=== PATIENT | female | born 1950 | race Caucasian/White ===

== ENCOUNTER → 2016-06-27 | Outpatient (CLI) | payer MEDICARE ==
[2016-06-27 11:01] LABS: ALT 46 U/L (9-52); AST 26 U/L (14-36); Alkaline Phosphatase 92 U/L (38-126); Anion Gap 9 mmol/L; Blood Urea Nitrogen 19 mg/dL (7-17); Calcium 8.7 mg/dL (8.4-10.2); Carbon Dioxide 26 mmol/L (22-30); Chloride 106 mmol/L (98-107); Cholesterol 243 mg/dL (<200); Glucose 134 mg/dL (74-99); HDL Cholesterol 67 mg/dL (40-60); Non-African American GFR(MDRD) >60 (>60 ml/min/1.73 sqM); Potassium 4.6 mmol/L (3.5-5.1); Sodium 141 mmol/L (137-145); Total Bilirubin 0.4 mg/dL (0.2-1.3); Total Protein 6.6 g/dL (6.3-8.2); Triglycerides 154 mg/dL (<150)
== END | disposition home or self-care (01) ==
LOC: LABWHC1 09:49
PROVIDERS: ATTEND Nurse Practitioner
DX: K21.9 Gastro-esophageal reflux disease without esophagitis (principal); E11.65 Type 2 diabetes mellitus with hyperglycemia; R11.0 Nausea
CPT/HCPCS: 36415; 80053; 80061; 82043; 84443; 86677

== ENCOUNTER → 2017-02-21 | Day surgery (SDC) | payer MEDICARE ==
[2017-02-20 08:51] VITALS: BMI 26.2
[~2017-02-21] MED LIST: LACTATED RINGERS 1,000 ML IV SCH; LIDOCAINE 1% 20 ML VIAL (10MG/ML) FOR IV START INTRADERMA ONE; ONDANSETRON 4 MG/2 ML VIAL IVP ONE; PROPOFOL 10 MG/ML 20 ML VIAL IV ONE
[2017-02-21 09:08] VITALS: TEMP 96.6
[2017-02-21 09:12] LABS: Glucose,Whole Blood 142 mg/dL (75-99)
--- NOTE | 2017-02-21 09:58 | P.PCN ---
Date of Procedure: 02/21/17 Procedure(s) Performed: BRIEF HISTORY: Patient is a 66-year-old, pleasant, white female, scheduled for an upper endoscopy as a part of evaluation of chronic persistent nausea for the last 1 year duration. She was treated with Prilosec 20 mg daily for one month with no help. Recently was given a prescription for Zofran with no help. PROCEDURE PERFORMED: Esophagogastroduodenoscopy with biopsy. PREOPERATIVE DIAGNOSIS: Chronic persistent nausea. IV sedation per anesthesia. PROCEDURE: After informed consent was obtained, the patient was brought into the endoscopy unit. IV sedation was administered by Anesthesia under continuous monitoring. Initially the Olympus GIF-140 video endoscope was inserted into the mouth. Esophagus intubated without any difficulty. It was gradually advanced into the stomach and duodenum and carefully examined. The bulb and the second part of the duodenum appeared normal. Biopsies were done from the second part of the duodenum to rule out celiac disease. The scope at this time was withdrawn to the stomach, adequately insufflated with air, and upon careful examination, mucosa of the antrum, had patchy areas of erythema and biopsies were done from this area. The body, cardia and the fundus appeared normal. The scope was then withdrawn into the esophagus. The GE junction was located at 39 cm from the incisors. There was one superficial mucosal elevation at the GE junction consistent with LA grade A reflux esophagitis. A small hiatal hernia noted. Rest of the esophagus appeared normal and the patient tolerated the procedure well. IMPRESSION: 1. Mild antral gastritis. 2. Small hiatal hernia and LA grade A reflux esophagitis. RECOMMENDATIONS: The findings of this examination were discussed with the patient as well as a family. She was advised to follow up the biopsy results. in the meantime I will give her a trial of Zantac 150 milligrams twice daily for one month and she'll be seen in the office in 4-6 weeks.
[2017-02-21 10:33] VITALS: BP 157/77; PULSE 67; RESP 16
[2017-02-21 10:56] LABS: Glucose,Whole Blood 120 mg/dL (75-99)
== END ==
LOC: ORWHC2ENDO 08:23
PROVIDERS: ATTEND Internal Medicine Gastroenterology
DX: K29.50 Unspecified chronic gastritis without bleeding (principal); K21.0 Gastro-esophageal reflux disease with esophagitis; K20.0 Eosinophilic esophagitis; K44.9 Diaphragmatic hernia without obstruction or gangrene; E78.5 Hyperlipidemia, unspecified; J45.909 Unspecified asthma, uncomplicated; F17.200 Nicotine dependence, unspecified, uncomplicated; E11.9 Type 2 diabetes mellitus without complications; Z79.84 Long term (current) use of oral hypoglycemic drugs; E07.9 Disorder of thyroid, unspecified; F41.9 Anxiety disorder, unspecified; Z79.899 Other long term (current) drug therapy; Z88.6 Allergy status to analgesic agent; Z88.5 Allergy status to narcotic agent
CPT/HCPCS: 88305; 88342; 43239; J2405; J2704

== ENCOUNTER → 2017-09-16 | Outpatient (CLI) | payer MEDICARE, OTHER ==
[2017-09-16 10:36] LABS: HCT 43.1 % (34.0-46.0); HGB 14.3 gm/dL (11.4-16.0); MCH 28.7 pg (25.0-35.0); MCHC 33.1 g/dL (31.0-37.0); MCV 86.5 fL (80.0-100.0); Mean Platelet Volume 7.2; Platelet Count 176 k/uL (150-450); RBC 4.98 m/uL (3.80-5.40); RDW 13.1 % (11.5-15.5); WBC 6.1 k/uL (3.8-10.6)
[2017-09-16 11:14] LABS: Albumin 4.1 g/dL (3.5-5.0); Calcium 9.5 mg/dL (8.4-10.2); Potassium 4.5 mmol/L (3.5-5.1); Total Bilirubin 0.5 mg/dL (0.2-1.3); Total Protein 6.9 g/dL (6.3-8.2)
== END | disposition home or self-care (01) ==
LOC: LABWHC1 09:53
PROVIDERS: ATTEND Internal Medicine
DX: E11.65 Type 2 diabetes mellitus with hyperglycemia (principal)
CPT/HCPCS: 36415; 80053; 80061; 82043; 82570; 84443; 85027

== ENCOUNTER 2018-02-09 10:18 | Inpatient (IN) | payer MEDICARE ==
[2018-02-09] MEDS ORDERED: SODIUM CHLORIDE 0.9% 1,000 ML IV STA (10:58)
[2018-02-09] MEDS ORDERED: ONDANSETRON 4 MG/2 ML VIAL IVP STA (10:58)
[2018-02-09] MEDS ORDERED: MORPHINE SULFATE 2 MG/ML SYRINGE IVP STA (10:58)
[2018-02-09 11:21] LABS: Basophils % (A) 0 %; Eosinophils # (A) 0.1 k/uL (0-0.7); Eosinophils % (A) 1 %; HCT 42.1 % (34.0-46.0); HGB 14.2 gm/dL (11.4-16.0); Lymphocytes # (A) 1.8 k/uL (1.0-4.8); Lymphocytes % (A) 12 %; MCH 29.4 pg (25.0-35.0); MCHC 33.9 g/dL (31.0-37.0); MCV 86.7 fL (80.0-100.0); Mean Platelet Volume 7.3; Monocytes # (A) 0.5 k/uL (0-1.0); Monocytes % (A) 3 %; Neutrophils # (A) 12.6 k/uL (1.3-7.7); Neutrophils % (A) 83 %; Platelet Count 196 k/uL (150-450); RBC 4.85 m/uL (3.80-5.40); RDW 12.9 % (11.5-15.5); WBC 15.1 k/uL (3.8-10.6)
[2018-02-09 11:23] LABS: ALT 34 U/L (9-52); AST 18 U/L (14-36); Albumin 3.5 g/dL (3.5-5.0); Alkaline Phosphatase 105 U/L (38-126); Amylase 41 U/L (30-110); Anion Gap 8 mmol/L; Blood Urea Nitrogen 12 mg/dL (7-17); Calcium 8.7 mg/dL (8.4-10.2); Carbon Dioxide 24 mmol/L (22-30); Chloride 101 mmol/L (98-107); Glucose 311 mg/dL (74-99); Lipase 45 U/L (23-300); Potassium 4.7 mmol/L (3.5-5.1); Sodium 133 mmol/L (137-145); Total Bilirubin 1.1 mg/dL (0.2-1.3); Total Protein 6.4 g/dL (6.3-8.2)
--- NOTE | 2018-02-09 11:59 | ED ---
Abdominal Pain HPI - General Chief Complaint: Abdominal Pain Stated Complaint: poss appendicitis Time Seen by Provider: 02/09/18 10:44 Source: patient, RN notes reviewed Mode of arrival: wheelchair Limitations: no limitations - History of Present Illness Initial Comments: 67-year-old female presents emergency Department chief complaint of abdominal pain. Patient states this started this morning. Patient states that it is worse with movement states that nothing makes the pain feel better. Patient states all and right lower quadrant. Patient is concerned about acute appendicitis. She has no dysuria no hematuria no diarrhea no constipation denies any nausea vomiting. Patient states he has not taken anything for the pain is this time. She's had no prior abdominal surgeries. Denies any flank pain no history kidney stones. Patient denies chest pain or shortness breath. - Related Data Home Medications Medication Instructions Recorded Confirmed Albuterol Inhaler [Ventolin Hfa 1 - 2 puff INHALATION RT-Q6H PRN 02/20/17 Inhaler] Atorvastatin [Lipitor] 40 mg PO HS 02/20/17 02/09/18 Loratadine 10 mg PO DAILY 02/20/17 02/09/18 Multivit-Min/Iron/Folic/Lutein 1 tab PO DAILY 02/20/17 02/09/18 [Centrum Silver Women Tablet] Amoxic-Pot Clav 500-125 mg 1 tab PO Q12HR 02/09/18 02/09/18 [Augmentin 500-125 mg] Biotin 5 mg PO DAILY 02/09/18 02/09/18 Levothyroxine Sodium [Synthroid] 100 mcg PO DAILY 02/09/18 02/09/18 Magnesium 200 mg PO DAILY 02/09/18 02/09/18 glipiZIDE XL [Glucotrol Xl] 10 mg PO DAILY 02/09/18 02/09/18 Allergies Allergy/AdvReac Type Severity Reaction Status Date / Time aspirin AdvReac Nausea & Verified 02/09/18 11:01 Vomiting codeine AdvReac Nausea & Verified 02/09/18 11:01 Vomiting Review of Systems ROS Statement: Those systems with pertinent positive or pertinent negative responses have been documented in the HPI. ROS Other: All systems not noted in ROS Statement are negative. Past Medical History Past Medical History: Asthma, Diabetes Mellitus Additional Past Medical History / Comment(s): "morning sickness symptoms -no vomiting-for almost a year and loose stools", irregular HR, type II DM History of Any Multi-Drug Resistant Organisms: None Reported Past Surgical History: Section Additional Past Surgical History / Comment(s): LASIK ricardo eyes Past Anesthesia/Blood Transfusion Reactions: No Reported Reaction Additional Past Anesthesia/Blood Transfusion Reaction / Comment(s): no hx blood transfusions Past Psychological History: No Psychological Hx Reported Smoking Status: Former smoker Past Alcohol Use History: None Reported Past Drug Use History: None Reported - Past Family History Mother Family Medical History: Cancer Additional Family Medical History / Comment(s): non hodgekin's lymphoma Father Family Medical History: No Reported History Additional Family Medical History / Comment(s): tumor pituitary gland General Exam Limitations: no limitations General appearance: alert, in no apparent distress Head exam: Present: atraumatic, normocephalic, normal inspection Neck exam: Present: normal inspection, full ROM. Absent: tenderness, meningismus, lymphadenopathy Respiratory exam: Present: normal lung sounds bilaterally. Absent: respiratory distress, wheezes, rales, rhonchi, stridor Cardiovascular Exam: Present: regular rate, normal rhythm, normal heart sounds. Absent: systolic murmur, diastolic murmur, rubs, gallop, clicks GI/Abdominal exam: Present: soft, tenderness (Moderate right lower quadrant tenderness), normal bowel sounds. Absent: distended, guarding, rebound, rigid Back exam: Absent: CVA tenderness (R), CVA tenderness (L) Skin exam: Present: warm, dry, intact, normal color. Absent: rash Course Vital Signs 02/09/18 02/09/18 10:30 11:04 Temperature 98.6 F 97.3 F L Pulse Rate 95 Respiratory 18 Rate Blood Pressure 114/76 O2 Sat by Pulse 99 Oximetry Medical Decision Making - Medical Decision Making 67-year-old female presented for right lower quadrant abdominal pain. Patient had CT labwork which shows acute appendicitis. Patient will be started on Zosyn case discussed with Dr. Caputo who accepts patient - Lab Data Result diagrams: 02/09/18 10:57 02/09/18 10:57 Lab Results 02/09/18 02/09/18 02/09/18 Range/Units 10:57 10:57 10:57 WBC 15.1 H (3.8-10.6) k/uL RBC 4.85 (3.80-5.40) m/uL Hgb 14.2 (11.4-16.0) gm/dL Hct 42.1 (34.0-46.0) % MCV 86.7 (80.0-100.0) fL MCH 29.4 (25.0-35.0) pg MCHC 33.9 (31.0-37.0) g/dL RDW 12.9 (11.5-15.5) % Plt Count 196 (150-450) k/uL Neutrophils % 83 % Lymphocytes % 12 % Monocytes % 3 % Eosinophils % 1 % Basophils % 0 % Neutrophils # 12.6 H (1.3-7.7) k/uL Lymphocytes # 1.8 (1.0-4.8) k/uL Monocytes # 0.5 (0-1.0) k/uL Eosinophils # 0.1 (0-0.7) k/uL Basophils # 0.0 (0-0.2) k/uL Sodium 133 L (137-145) mmol/L Potassium 4.7 (3.5-5.1) mmol/L Chloride 101 (98-107) mmol/L Carbon Dioxide 24 (22-30) mmol/L Anion Gap 8 mmol/L BUN 12 (7-17) mg/dL Creatinine 0.66 (0.52-1.04) mg/dL Est GFR (CKD-EPI)AfAm >90 (>60 ml/min/1.73 sqM) Est GFR (CKD-EPI)NonAf >90 (>60 ml/min/1.73 sqM) Glucose 311 H (74-99) mg/dL Plasma Lactic Acid Travis 1.6 (0.7-2.0) mmol/L Calcium 8.7 (8.4-10.2) mg/dL Total Bilirubin 1.1 (0.2-1.3) mg/dL AST 18 (14-36) U/L ALT 34 (9-52) U/L Alkaline Phosphatase 105 (38-126) U/L Total Protein 6.4 (6.3-8.2) g/dL Albumin 3.5 (3.5-5.0) g/dL Amylase 41 (30-110) U/L Lipase 45 (23-300) U/L Urine Color Urine Appearance (Clear) Urine pH (5.0-8.0) Ur Specific Mason (1.001-1.035) Urine Protein (Negative) Urine Glucose (UA) (Negative) Urine Ketones (Negative) Urine Blood (Negative) Urine Nitrite (Negative) Urine Bilirubin (Negative) Urine Urobilinogen (<2.0) mg/dL Ur Leukocyte Esterase (Negative) 02/09/18 Range/Units 11:57 WBC (3.8-10.6) k/uL RBC (3.80-5.40) m/uL Hgb (11.4-16.0) gm/dL Hct (34.0-46.0) % MCV (80.0-100.0) fL MCH (25.0-35.0) pg MCHC (31.0-37.0) g/dL RDW (11.5-15.5) % Plt Count (150-450) k/uL Neutrophils % % Lymphocytes % % Monocytes % % Eosinophils % % Basophils % % Neutrophils # (1.3-7.7) k/uL Lymphocytes # (1.0-4.8) k/uL Monocytes # (0-1.0) k/uL Eosinophils # (0-0.7) k/uL Basophils # (0-0.2) k/uL Sodium (137-145) mmol/L Potassium (3.5-5.1) mmol/L Chloride (98-107) mmol/L Carbon Dioxide (22-30) mmol/L Anion Gap mmol/L BUN (7-17) mg/dL Creatinine (0.52-1.04) mg/dL Est GFR (CKD-EPI)AfAm (>60 ml/min/1.73 sqM) Est GFR (CKD-EPI)NonAf (>60 ml/min/1.73 sqM) Glucose (74-99) mg/dL Plasma Lactic Acid Travis (0.7-2.0) mmol/L Calcium (8.4-10.2) mg/dL Total Bilirubin (0.2-1.3) mg/dL AST (14-36) U/L ALT (9-52) U/L Alkaline Phosphatase (38-126) U/L Total Protein (6.3-8.2) g/dL Albumin (3.5-5.0) g/dL Amylase (30-110) U/L Lipase (23-300) U/L Urine Color Light Yellow Urine Appearance Clear (Clear) Urine pH 7.5 (5.0-8.0) Ur Specific Mason 1.022 (1.001-1.035) Urine Protein Negative (Negative) Urine Glucose (UA) 3+ H (Negative) Urine Ketones Negative (Negative) Urine Blood Negative (Negative) Urine Nitrite Negative (Negative) Urine Bilirubin Negative (Negative) Urine Urobilinogen <2.0 (<2.0) mg/dL Ur Leukocyte Esterase Negative (Negative) Disposition Clinical Impression: Acute appendicitis Disposition: ADMITTED IP TO THIS HOSP Condition: Fair Referrals: Luli Silva MD [Primary Care Provider] - 1-2 days
[2018-02-09 12:13] LABS: Appearance,Urine Clear (Clear); Bilirubin,Urine Negative (Negative); Blood,Urine Negative (Negative); Color,Urine Light Yellow; Glucose,Urine (UA) 3+ (Negative); Ketones,Urine Negative (Negative); Leukocyte Esterase,Urine Negative (Negative); Nitrite,Urine Negative (Negative); PH, Urine 7.5 (5.0-8.0); Protein,Urine Negative (Negative); Specific Gravity,Urine 1.022 (1.001-1.035); Urobilinogen,Urine <2.0 mg/dL (<2.0)
[2018-02-09] MEDS ORDERED: PIPERACILLIN-TAZOBACTAM 3.375 GM in DEXTROSE/WATER 1 50ML.BAG IVPB STA (12:13)
--- NOTE | 2018-02-09 12:16 | CT ---
EXAMINATION TYPE: CT abdomen pelvis w con DATE OF EXAM: 02/09/2018 HISTORY: RLQ pain CT DLP: 530.8mGycm Automated Exposure Control for Dose Reduction was Utilized. CONTRAST: CT scan of the abdomen and pelvis is performed without oral but with IV Contrast, patient injected wi th 100 mL of Isovue 300. COMPARISON: None FINDINGS: LUNG BASES: Heart size is upper limits of normal. Calcifications at level of mitral valve are present .. There is dependent atelectasis in both bases. LIVER/GB: There are 2 large gallstones seen in somewhat contracted gallbladder. No surrounding inflam matory change is present. Liver is low dense relative to spleen suggesting diffuse fatty infiltration . PANCREAS: There is mild fat replaced atrophy at level of inferior head and uncinate process. SPLEEN: No significant abnormality is seen. ADRENALS: No significant abnormality is seen. KIDNEYS: No significant abnormality is seen. BOWEL: Small hiatal hernia is seen. Evaluation of bowel is suboptimal secondary to lack of enteric co ntrast. Stomach is poorly distended and thus suboptimally evaluated. There is no suspicious small or large bowel dilatation. Terminal ileum shows mild to moderate concentric wall thickening. Adjacent ap pendix inferior to this is dilated between 9 and 11 mm on axial image 74 and coronal image 32, there is mild to borderline moderate ill-defined fluid and fat stranding along its course. There is mild wa ll thickening involving proximal to mid portion of right colon including cecum. No obvious obstructin g mass. A few scattered colonic diverticula in the left and sigmoid colon are present without CT evid ence for acute diverticulitis. UTERUS/ADNEXA: Posterior calcification in the anteverted uterus could reflect small calcified fibroid axial image 74. Scattered pelvic phleboliths are seen. LYMPH NODES: No greater than 1cm abdominal or pelvic lymph nodes are appreciated. OSSEOUS STRUCTURES: There is transitional-type L6 vertebra at lumbosacral junction. Moderate joint sp braxton loss in both hips is present. OTHER: No significant additional abnormality is seen. IMPRESSION: CT findings suggesting acute appendicitis with [id number] surrounding inflammatory change. No free air is noted. Some reactive inflammatory changes to adjacent cecum and terminal ileum may be present. Case discussed with ordering ER physician assistant hvac mechanic via telephone at time of dictation. A Document Only message has been documented for Keo Donahue MD in the [employer] system on 02/09/2018 12:14 PM, Message ID [id number].
[2018-02-09] MEDS ORDERED: MORPHINE SULFATE 2 MG/ML SYRINGE IV PRN (12:19)
[2018-02-09] MEDS ORDERED: ONDANSETRON 4 MG/2 ML VIAL IVP PRN (12:19)
[2018-02-09 13:26] LABS: Glucose,Whole Blood 241 mg/dL (75-99)
[2018-02-09] MEDS ORDERED: IV FLUID CONTINUATION 1,000 ML IV ONE (13:28)
[2018-02-09] MEDS ORDERED: BUPIVACAINE-EPI 0.5%-1:200,000 10 ML VIAL SQ ONE ×2 (13:34→14:40)
[2018-02-09] MEDS ORDERED: HEPARIN SODIUM,PORCINE 5,000 UNIT/ML 1 ML VIAL SQ ONE (13:43)
--- NOTE | 2018-02-09 13:49 | P.GSHP ---
History of Present Illness H&P Date: 02/09/18 67-year-old female presents to the emergency department with complaints of right lower quadrant pain. She states that the pain began approximately 24 hours ago and worsened over that time. She complained of some nausea and emesis episodes. She denies any change in bowel function. She states that since visiting the emergency department and receiving some pain medication that her pain has improved. She also complains of subjective fever and chills. She has no additional complaints at this time. She did undergo workup in the emergency department and CT of the abdomen and pelvis is suspicious for acute appendicitis. The patient does state that her only previous abdominal surgeries . She also has a previous medical history of diabetes, hypercholesterolemia, hypothyroidism. - Review of Systems All systems: negative Past Medical History Past Medical History: Asthma, Diabetes Mellitus, Hyperlipidemia, Pneumonia, Skin Disorder, Thyroid Disorder Additional Past Medical History / Comment(s): Current pneumonia-was to take last antibiotic today, NIDDM type II, irregular heart beat at times-wore holter monitor and nothing showed, eczema in the past, hypothyroid, gastritis, hiatal hernia. History of Any Multi-Drug Resistant Organisms: None Reported Past Surgical History: Section Additional Past Surgical History / Comment(s): EGD, colonoscopies, lasik ricardo eyes Past Anesthesia/Blood Transfusion Reactions: No Reported Reaction Additional Past Anesthesia/Blood Transfusion Reaction / Comment(s): no hx blood transfusions Smoking Status: Former smoker - Past Family History Mother Family Medical History: Cancer Additional Family Medical History / Comment(s): Mother of non hodgekin's lymphoma at the age of 68yrs. Father Family Medical History: No Reported History Additional Family Medical History / Comment(s): Father had a tumor on his pituitary gland that strangle itself, he from pulmonary fibrosis. Medications and Allergies Home Medications Medication Instructions Recorded Confirmed Type Albuterol Inhaler [Ventolin Hfa 1 - 2 puff INHALATION RT-Q6H PRN 02/20/17 History Inhaler] Atorvastatin [Lipitor] 40 mg PO HS 02/20/17 02/09/18 History Loratadine 10 mg PO DAILY 02/20/17 02/09/18 History Multivit-Min/Iron/Folic/Lutein 1 tab PO DAILY 02/20/17 02/09/18 History [Centrum Silver Women Tablet] Amoxic-Pot Clav 500-125 mg 1 tab PO Q12HR 02/09/18 02/09/18 History [Augmentin 500-125 mg] Biotin 5 mg PO DAILY 02/09/18 02/09/18 History Levothyroxine Sodium [Synthroid] 100 mcg PO DAILY 02/09/18 02/09/18 History Magnesium 200 mg PO DAILY 02/09/18 02/09/18 History glipiZIDE XL [Glucotrol Xl] 10 mg PO DAILY 02/09/18 02/09/18 History Allergies Allergy/AdvReac Type Severity Reaction Status Date / Time pneumococcal vaccine Allergy Unknown Verified 02/09/18 13:19 aspirin AdvReac Nausea & Verified 02/09/18 13:19 Vomiting codeine AdvReac Nausea & Verified 02/09/18 13:19 Vomiting Surgical - Exam Osteopathic Statement: *. No significant issues noted on an osteopathic structural exam other than those noted in the History and Physical/Consult. Vital Signs Temp Pulse Resp BP Pulse Ox 98.6 F 95 18 114/76 99 02/09/18 10:30 02/09/18 10:30 02/09/18 10:30 02/09/18 10:30 02/09/18 10:30 - General well nourished, no distress - ENT normal mucosa, no hearing loss - Neck no masses, trachea midline - Respiratory normal respiratory effort - Cardiovascular No difficulty with respiration - Abdomen Soft, tender to palpation in the right lower quadrant, nondistended, no rebound , no guarding - Neurologic normal coordination, normal sensation - Psychiatric oriented to time, oriented to person, oriented to place, speech is normal Results - Labs 02/09/18 10:57 02/09/18 10:57 Abnormal Lab Results - Last 24 Hours (Table) 02/09/18 02/09/18 02/09/18 Range/Units 10:57 10:57 11:57 WBC 15.1 H (3.8-10.6) k/uL Neutrophils # 12.6 H (1.3-7.7) k/uL Sodium 133 L (137-145) mmol/L Glucose 311 H (74-99) mg/dL POC Glucose (mg/dL) (75-99) mg/dL Urine Glucose (UA) 3+ H (Negative) 02/09/18 Range/Units 13:24 WBC (3.8-10.6) k/uL Neutrophils # (1.3-7.7) k/uL Sodium (137-145) mmol/L Glucose (74-99) mg/dL POC Glucose (mg/dL) 241 H (75-99) mg/dL Urine Glucose (UA) (Negative) Diabetes panel 02/09/18 Range/Units 10:57 Sodium 133 L (137-145) mmol/L Potassium 4.7 (3.5-5.1) mmol/L Chloride 101 (98-107) mmol/L Carbon Dioxide 24 (22-30) mmol/L BUN 12 (7-17) mg/dL Creatinine 0.66 (0.52-1.04) mg/dL Glucose 311 H (74-99) mg/dL Calcium 8.7 (8.4-10.2) mg/dL AST 18 (14-36) U/L ALT 34 (9-52) U/L Alkaline Phosphatase 105 (38-126) U/L Total Protein 6.4 (6.3-8.2) g/dL Albumin 3.5 (3.5-5.0) g/dL Calcium panel 02/09/18 Range/Units 10:57 Calcium 8.7 (8.4-10.2) mg/dL Albumin 3.5 (3.5-5.0) g/dL Pituitary panel 02/09/18 Range/Units 10:57 Sodium 133 L (137-145) mmol/L Potassium 4.7 (3.5-5.1) mmol/L Chloride 101 (98-107) mmol/L Carbon Dioxide 24 (22-30) mmol/L BUN 12 (7-17) mg/dL Creatinine 0.66 (0.52-1.04) mg/dL Glucose 311 H (74-99) mg/dL Calcium 8.7 (8.4-10.2) mg/dL Adrenal panel 02/09/18 Range/Units 10:57 Sodium 133 L (137-145) mmol/L Potassium 4.7 (3.5-5.1) mmol/L Chloride 101 (98-107) mmol/L Carbon Dioxide 24 (22-30) mmol/L BUN 12 (7-17) mg/dL Creatinine 0.66 (0.52-1.04) mg/dL Glucose 311 H (74-99) mg/dL Calcium 8.7 (8.4-10.2) mg/dL Total Bilirubin 1.1 (0.2-1.3) mg/dL AST 18 (14-36) U/L ALT 34 (9-52) U/L Alkaline Phosphatase 105 (38-126) U/L Total Protein 6.4 (6.3-8.2) g/dL Albumin 3.5 (3.5-5.0) g/dL - Imaging CT scan - abdomen: report reviewed, image reviewed (Acute appendicitis noted, inflammatory changes surrounding appendix) CT scan - pelvis: report reviewed, image reviewed Assessment and Plan (1) Acute appendicitis Narrative/Plan: 67-year-old female with acute appendicitis - Get antibiotics - Keep nothing by mouth - DVT prophylaxis with SCDs and heparin subcu - Plan for laparoscopic appendectomy - Further recommendations after surgery Current Visit: Yes Status: Acute Code(s): K35.80 - UNSPECIFIED ACUTE APPENDICITIS SNOMED Code(s): 08397786
[2018-02-09] MEDS ORDERED: MIDAZOLAM 2 MG/2 ML VIAL ONE (13:50)
[2018-02-09] MEDS ORDERED: ROCURONIUM BROMIDE 10 MG/ML 10 ML VIAL IV ONE (13:50)
[2018-02-09] MEDS ORDERED: SUCCINYLCHOLINE CHLORIDE 100 MG/5 ML SYR IV ONE (13:50)
[2018-02-09] MEDS ORDERED: fentaNYL (PF) 50 MCG/ML 2 ML AMP ONE (13:50)
[2018-02-09] MEDS ORDERED: LIDOCAINE 1% INJ 10MG/ML (20 ML MDV) ONE (13:50)
[2018-02-09] MEDS ORDERED: PROPOFOL 10 MG/ML 20 ML VIAL IV ONE (13:50)
[2018-02-09] MEDS ORDERED: PHENYLEPHRINE-0.9% NACL SYG 1 MG/10 ML SYRINGE ONE (13:50)
[2018-02-09] MEDS ORDERED: NEOSTIGMINE 1 MG/ML 10 ML VIAL ONE (13:50)
[2018-02-09] MEDS ORDERED: KETOROLAC 30 MG/ML 1 ML VIAL ONE (13:50)
[2018-02-09] MEDS ORDERED: GLYCOPYRROLATE 0.2 MG/ML 2 ML VIAL ONE (13:50)
[2018-02-09] MEDS ORDERED: HYDROmorphone 1 MG/ML 1 ML SYRINGE IVP PRN (14:49)
[2018-02-09] MEDS ORDERED: NALOXONE 0.4 MG/ML 1 ML VIAL IV PRN (14:49)
--- NOTE | 2018-02-09 15:00 | P.OP ---
Date of Procedure: 02/09/18 Preoperative Diagnosis: Acute appendicitis Postoperative Diagnosis: Acute appendicitis Procedure(s) Performed: Laparoscopic appendectomy Anesthesia: ARNAV Surgeon: Hui Caputo Pathology: other (Appendix) Condition: stable Disposition: floor Indications for Procedure: 59-year-old female presented to the emergency department with right lower quadrant pain. On workup she was found to have acute appendicitis. Secondary to this laparoscopic appendectomy was planned. The patient was excellent the risks, benefits and alternatives to the procedure. She did provide consent prior to attending the operating suite. Operative Findings: Injected, erythematous, suppurative appendix Description of Procedure: The patient was brought into the operating suite and placed in supine position on the operating table. Sedation was provided by anesthesia and the patient underwent endotracheal intubation. The patient was then prepped and draped in regular sterile fashion. Local anesthetic was administered and a small supraumbilical incision was made dissection was carried to the fascia the fascia was incised and the peritoneum was entered. A 12 mm trocar was placed and pneumoperitoneum was achieved. The patient was then placed in appropriate position and the appendix was clearly visualized in the right lower quadrant. The appendix was erythematous, injected and thickened. There was some notable suppurative changes. 2 additional ports were then placed. These are 5 mm ports were placed in the suprapubic region and left lower quadrant. The appendix was grasped and surrounding adhered tissue was dissected free. A window was created between the mesoappendix and the appendix. LigaSure device was then used to dissect the appendix from the mesoappendix. A stapler device was then fired across the base of the appendix and the appendix was removed from the abdomen using an Endo Catch bag. Hemostasis was noted to be maintained. Irrigation was then used in the right lower quadrant. Pneumoperitoneum was then completely released. The fascia of the super umbilical incision site was closed using a [id number] 0 Vicryl suture. All skin incisions were then closed with 4-0 Vicryl subcuticular suture. Sterile dressing was applied. The patient was awakened in the operating suite and taken to postanesthesia care unit in stable condition.
[2018-02-09 15:20] LABS: Glucose,Whole Blood 226 mg/dL (75-99)
[2018-02-09] MEDS ORDERED: INSULIN ASPART 100 UNIT/ML 1 ML 10 ML VIAL SQ ONE (15:25)
[2018-02-09 15:48] VITALS: BMI 26.6
[2018-02-09] MEDS: LACTATED RINGERS 1,000 ML IV SCH (16:13)
[2018-02-09] MEDS: INSULIN ASPART 100 UNIT/ML 1 ML 10 ML VIAL SQ SCH ×2 (19:24→21:08)
[2018-02-09] MEDS: HEPARIN SODIUM,PORCINE 5,000 UNIT/ML 1 ML VIAL SQ SCH ×2 (20:36→23:50)
[2018-02-09] MEDS: PIPERACILLIN-TAZOBACTAM 3.375 GM in DEXTROSE/WATER 1 50ML.BAG IVPB SCH (20:43)
[2018-02-09] MEDS: DOCUSATE 100 MG CAP PO SCH (20:44)
[2018-02-09] MEDS: ATORVASTATIN 40 MG TAB PO SCH (20:44)
[2018-02-09 20:54] LABS: Glucose,Whole Blood 218 mg/dL (75-99)
[2018-02-09] MEDS: HYDROcodone/APAP 5-325MG 1 EACH TAB PO PRN (21:21)
[2018-02-10] MEDS: LACTATED RINGERS 1,000 ML IV SCH ×3 (02:04→12:15)
[2018-02-10] MEDS: HYDROcodone/APAP 5-325MG 1 EACH TAB PO PRN ×4 (02:21→23:33)
[2018-02-10] MEDS: PIPERACILLIN-TAZOBACTAM 3.375 GM in DEXTROSE/WATER 1 50ML.BAG IVPB SCH ×3 (04:41→20:11)
[2018-02-10] MEDS: LEVOTHYROXINE 100 MCG TAB PO SCH (06:28)
[2018-02-10] MEDS: INSULIN ASPART 100 UNIT/ML 1 ML 10 ML VIAL SQ SCH ×4 (06:36→21:33)
[2018-02-10 06:38] LABS: Glucose,Whole Blood 102 mg/dL (75-99)
[2018-02-10 07:47] LABS: Basophils % (A) 0 %; Eosinophils # (A) 0.1 k/uL (0-0.7); Eosinophils % (A) 0 %; HCT 37.6 % (34.0-46.0); HGB 12.3 gm/dL (11.4-16.0); Lymphocytes # (A) 1.7 k/uL (1.0-4.8); Lymphocytes % (A) 12 %; MCHC 32.8 g/dL (31.0-37.0); MCV 88.4 fL (80.0-100.0); Mean Platelet Volume 7.4; Monocytes # (A) 0.5 k/uL (0-1.0); Monocytes % (A) 4 %; Neutrophils # (A) 11.8 k/uL (1.3-7.7); Neutrophils % (A) 83 %; Platelet Count 157 k/uL (150-450); RBC 4.25 m/uL (3.80-5.40); RDW 13.1 % (11.5-15.5); WBC 14.2 k/uL (3.8-10.6)
[2018-02-10 07:50] LABS: Potassium 4.4 mmol/L (3.5-5.1)
[2018-02-10] MEDS: HEPARIN SODIUM,PORCINE 5,000 UNIT/ML 1 ML VIAL SQ SCH ×2 (09:01→16:07)
[2018-02-10] MEDS: DOCUSATE 100 MG CAP PO SCH ×2 (09:01→21:35)
[2018-02-10] MEDS: PANTOPRAZOLE 40 MG/10 ML VIAL IV SCH (09:03)
[2018-02-10] MEDS: ACETAMINOPHEN TAB 325 MG TAB PO PRN ×3 (09:05→23:34)
--- NOTE | 2018-02-10 09:25 | P.PN ---
Subjective Progress Note Date: 02/10/18 Patient seen and examined at bedside. Low-grade fevers overnight. She does state she feels much better than when she originally arrived at the hospital. Denies nausea or vomiting episodes. Pain is controlled. Objective - Vital Signs Vital signs: Vital Signs Temp 100.3 F H 02/10/18 08:20 Pulse 99 02/10/18 08:35 Resp 16 02/10/18 08:35 BP 139/76 02/10/18 08:20 Pulse Ox 94 L 02/10/18 08:35 Intake & Output 02/09/18 02/10/18 02/10/18 18:59 06:59 18:59 Intake Total 850 Output Total 5 1050 Balance 845 -1050 Weight 70.307 kg Intake: IV 850 Output: Urine 1050 Estimated Blood Loss 5 Other: Voiding Method Toilet Toilet # Voids 1 - Constitutional General appearance: Present: cooperative - Respiratory Details: No difficulty with respiration - Gastrointestinal Gastrointestinal Comment(s): Soft, appropriate tenderness, nondistended, no rebound, no guarding, incision sites are clean, dry and intact - Psychiatric Psychiatric: Present: A&O x's 3 - Labs CBC & Chem 7: 02/10/18 06:54 02/10/18 06:54 Labs: Abnormal Lab Results - Last 24 Hours (Table) 02/09/18 02/09/18 02/09/18 Range/Units 10:57 10:57 11:57 WBC 15.1 H (3.8-10.6) k/uL Neutrophils # 12.6 H (1.3-7.7) k/uL Sodium 133 L (137-145) mmol/L Glucose 311 H (74-99) mg/dL POC Glucose (mg/dL) (75-99) mg/dL Calcium (8.4-10.2) mg/dL Urine Glucose (UA) 3+ H (Negative) 02/09/18 02/09/18 02/09/18 Range/Units 13:24 15:17 20:49 WBC (3.8-10.6) k/uL Neutrophils # (1.3-7.7) k/uL Sodium (137-145) mmol/L Glucose (74-99) mg/dL POC Glucose (mg/dL) 241 H 226 H 218 H (75-99) mg/dL Calcium (8.4-10.2) mg/dL Urine Glucose (UA) (Negative) 02/10/18 02/10/18 02/10/18 Range/Units 06:35 06:54 06:54 WBC 14.2 H (3.8-10.6) k/uL Neutrophils # 11.8 H (1.3-7.7) k/uL Sodium 135 L (137-145) mmol/L Glucose 104 H (74-99) mg/dL POC Glucose (mg/dL) 102 H (75-99) mg/dL Calcium 8.0 L (8.4-10.2) mg/dL Urine Glucose (UA) (Negative) Assessment and Plan (1) Acute appendicitis Narrative/Plan: 67-year-old female postoperative day #1, status post laparoscopic appendectomy - Continue Zosyn - Advance to soft diet - DVT prophylaxis with SCDs and heparin subcu - Continue and encouraged incentive spirometry. We will continue to monitor low- grade fevers. - Medical recommendations appreciated Current Visit: Yes Status: Acute Code(s): K35.80 - UNSPECIFIED ACUTE APPENDICITIS SNOMED Code(s): 72107200
--- NOTE | 2018-02-10 10:11 | P.CONS ---
History of Present Illness - Reason for Consult Consult date: 02/10/18 medical managment Requesting physician: Hui Caputo - Chief Complaint acute appendicitis - History of Present Illness This is 59-year-old female patient of Dr. Silva. Patient presented to the emergency room of right lower quadrant pain since states pain started the day prior and had been progressively increasing throughout the day and night. Patient does report that she did have some nausea and vomiting with the pain. Patient has known past medical history of asthma, diabetes mellitus, hyperlipidemia, pneumonia, skin disorder and thyroid disorder. CT of abdomen completed suggesting acute appendicitis mild to moderate surrounding inflammatory change. No free air is noted. Some reactive inflammatory changes to adjacent cecum and terminal ileum may be present. Patient underwent a laparoscopic appendectomy with Dr. Caputo. Patient does state she was on her last day of antibiotics for pneumonia prior to coming to the hospital. Patient' s white blood cell elevated at 14.2. Patient also having temps of 100.3. Patient does complain that she still having a cough some sputum production. Chest x-ray has been ordered. UA completed showing +3 glucose but negative for urinary tract infection. Patient currently on Zosyn per surgical services. At this time patient does complain of some abdominal pain. Patient denies chest pain or shortness of breath. Patient denies any nausea vomiting or diarrhea. Patient denies any urinary burning or frequency. Review of Systems Please refer to HPI otherwise unremarkable Past Medical History Past Medical History: Asthma, Diabetes Mellitus, Hyperlipidemia, Pneumonia, Skin Disorder, Thyroid Disorder Additional Past Medical History / Comment(s): Current pneumonia-was to take last antibiotic today, NIDDM type II, irregular heart beat at times-wore holter monitor and nothing showed, eczema in the past, hypothyroid, gastritis, hiatal hernia. History of Any Multi-Drug Resistant Organisms: None Reported Past Surgical History: Section Additional Past Surgical History / Comment(s): EGD, colonoscopies, lasik ricardo eyes Past Anesthesia/Blood Transfusion Reactions: No Reported Reaction Additional Past Anesthesia/Blood Transfusion Reaction / Comm: no hx blood transfusions Smoking Status: Former smoker - Past Family History Mother Family Medical History: Cancer Additional Family Medical History / Comment(s): Mother of non hodgekin's lymphoma at the age of 68yrs. Father Family Medical History: No Reported History Additional Family Medical History / Comment(s): Father had a tumor on his pituitary gland that strangle itself, he from pulmonary fibrosis. Medications and Allergies Home Medications Medication Instructions Recorded Confirmed Type Albuterol Inhaler [Ventolin Hfa 1 - 2 puff INHALATION RT-Q6H PRN 02/20/17 History Inhaler] Atorvastatin [Lipitor] 40 mg PO HS 02/20/17 02/09/18 History Loratadine 10 mg PO DAILY 02/20/17 02/09/18 History Multivit-Min/Iron/Folic/Lutein 1 tab PO DAILY 02/20/17 02/09/18 History [Centrum Silver Women Tablet] Amoxic-Pot Clav 500-125 mg 1 tab PO Q12HR 02/09/18 02/09/18 History [Augmentin 500-125 mg] Biotin 5 mg PO DAILY 02/09/18 02/09/18 History Levothyroxine Sodium [Synthroid] 100 mcg PO DAILY 02/09/18 02/09/18 History Magnesium 200 mg PO DAILY 02/09/18 02/09/18 History glipiZIDE XL [Glucotrol Xl] 10 mg PO DAILY 02/09/18 02/09/18 History Allergies Allergy/AdvReac Type Severity Reaction Status Date / Time pneumococcal vaccine Allergy Unknown Verified 02/09/18 13:19 aspirin AdvReac Nausea & Verified 02/09/18 13:19 Vomiting codeine AdvReac Nausea & Verified 02/09/18 13:19 Vomiting Physical Exam Vitals: Vital Signs Temp Pulse Pulse Pulse Resp BP BP 02/10/18 08:35 99 16 02/10/18 08:20 100.3 F H 96 20 139/76 02/10/18 04:40 99.7 F H 92 16 116/69 02/10/18 02:08 100.7 F H 02/09/18 23:35 100.2 F H 86 16 148/75 02/09/18 18:59 69 18 127/77 02/09/18 18:00 60 16 101/61 02/09/18 17:30 59 L 18 95/63 02/09/18 17:00 66 16 105/63 02/09/18 16:45 51 L 16 109/63 02/09/18 16:30 65 14 112/64 02/09/18 16:16 98.4 F 81 16 112/84 02/09/18 16:15 98.4 F 63 13 112/64 02/09/18 15:38 76 16 115/59 02/09/18 15:23 73 16 107/56 02/09/18 15:08 76 16 119/60 02/09/18 14:52 97.8 F 61 14 118/61 02/09/18 13:25 98.3 F 86 16 141/76 02/09/18 12:33 100.6 F H 77 18 143/73 02/09/18 11:04 97.3 F L 02/09/18 10:30 98.6 F 95 18 114/76 Pulse Ox 02/10/18 08:35 94 L 02/10/18 08:20 90 L 02/10/18 04:40 92 L 02/10/18 02:08 02/09/18 23:35 94 L 02/09/18 18:59 100 02/09/18 18:00 96 02/09/18 17:30 97 02/09/18 17:00 97 02/09/18 16:45 97 02/09/18 16:30 97 02/09/18 16:16 93 L 02/09/18 16:15 94 L 02/09/18 15:38 96 02/09/18 15:23 97 02/09/18 15:08 97 02/09/18 14:52 02/09/18 13:25 97 02/09/18 12:33 97 02/09/18 11:04 02/09/18 10:30 99 Intake and Output 02/09/18 02/10/18 02/10/18 22:59 06:59 14:59 Intake Total 0 Output Total 700 350 Balance -700 -350 Intake: IV 0 Output: Urine 700 350 Other: Voiding Method Toilet Toilet # Voids 1 Weight 70.307 kg Head normocephalic Neck supple Lungs diminished breath sounds bilaterally Heart regular rate and rhythm S1-S2, no rub or gallop Abdomen nondistended. 3 surgical Sites clean dry and intact. Extremities no edema Neuro alert and orientated to 3 Results CBC & Chem 7: 02/10/18 06:54 02/10/18 06:54 Labs: Abnormal Lab Results - Last 24 Hours (Table) 02/09/18 02/09/18 02/09/18 Range/Units 10:57 10:57 11:57 WBC 15.1 H (3.8-10.6) k/uL Neutrophils # 12.6 H (1.3-7.7) k/uL Sodium 133 L (137-145) mmol/L Glucose 311 H (74-99) mg/dL POC Glucose (mg/dL) (75-99) mg/dL Calcium (8.4-10.2) mg/dL Urine Glucose (UA) 3+ H (Negative) 02/09/18 02/09/18 02/09/18 Range/Units 13:24 15:17 20:49 WBC (3.8-10.6) k/uL Neutrophils # (1.3-7.7) k/uL Sodium (137-145) mmol/L Glucose (74-99) mg/dL POC Glucose (mg/dL) 241 H 226 H 218 H (75-99) mg/dL Calcium (8.4-10.2) mg/dL Urine Glucose (UA) (Negative) 02/10/18 02/10/18 02/10/18 Range/Units 06:35 06:54 06:54 WBC 14.2 H (3.8-10.6) k/uL Neutrophils # 11.8 H (1.3-7.7) k/uL Sodium 135 L (137-145) mmol/L Glucose 104 H (74-99) mg/dL POC Glucose (mg/dL) 102 H (75-99) mg/dL Calcium 8.0 L (8.4-10.2) mg/dL Urine Glucose (UA) (Negative) Assessment and Plan Assessment: 1. Acute appendicitis. Status post laparoscopic appendectomy with Dr. Caputo. Patient currently on low fiber diet 2. History of recent pneumonia. Patient received outpatient treatment prior to hospitalization. Patient does complain of cough with some sputum production. Chest x-ray has been ordered 3. Leukocytosis and febrile. WBC 14.2. Temp 100.3. Patient currently on Zosyn. UA negative for infection. Chest x-ray has been ordered due to recent pneumonia 4. History of hypothyroidism continue Synthroid 5. History of diabetes mellitus. Patient takes glipizide at home. Currently on hold. sliding scale has been ordered 6. Hyperlipidemia continue Lipitor 7. History of asthma. No exacerbation at this time DVT prophylaxis heparin. GI prophylaxis Protonix Chest x-ray and a.m. labs have been ordered Acute for this consultation we will continue to follow patient closely throughout the day Time with Patient: Greater than 30 (Greater than 60% of the total time spent in counseling and coordination of care. I performed an examination of the patient and discussed their management with the Nurse Practitioner. I have reviewed the Nurse Practitioner's notes and agree with the documented findings and plan of care)
[2018-02-10 11:04] LABS: Glucose,Whole Blood 295 mg/dL (75-99)
[2018-02-10 12:57] LABS: Hemoglobin A1C 8.9 % (4.0-6.0)
[2018-02-10 17:25] LABS: Glucose,Whole Blood 170 mg/dL (75-99)
--- NOTE | 2018-02-10 20:07 | XR ---
EXAMINATION: XR chest 2V DATE AND TIME: 02/10/2018 5:04 PM CLINICAL INDICATION: recent pneumonia TECHNIQUE: PA and lateral COMPARISON: None. FINDINGS: The upper and mid lungs are clear and well-expanded bilaterally. However, there is partial airlessnes s with ill-defined added opacity in the lung bases bilaterally. This can correlate with resolving bib asilar bronchopneumonia. Lungs are otherwise unremarkable. The pleural spaces are negative. The cardiac silhouette is mild-moderately enlarged. Mildly tortuous aorta is noted. The remainder of the mediastinal silhouette is unremarkable. The skeletal structures and soft tissues are negative for acute findings. IMPRESSION: Findings suggest resolving bibasilar bronchopneumonia. Would suggest six-week follow-up PA and latera l chest to prove resolution.
[2018-02-10 20:44] LABS: Glucose,Whole Blood 175 mg/dL (75-99)
[2018-02-10] MEDS: ATORVASTATIN 40 MG TAB PO SCH (21:35)
[2018-02-11] MEDS: HEPARIN SODIUM,PORCINE 5,000 UNIT/ML 1 ML VIAL SQ SCH ×3 (03:03→15:56)
[2018-02-11] MEDS: PIPERACILLIN-TAZOBACTAM 3.375 GM in DEXTROSE/WATER 1 50ML.BAG IVPB SCH ×3 (06:56→20:18)
[2018-02-11] MEDS: LACTATED RINGERS 1,000 ML IV SCH (06:59)
[2018-02-11] MEDS: LEVOTHYROXINE 100 MCG TAB PO SCH (07:21)
[2018-02-11 07:33] LABS: Glucose,Whole Blood 139 mg/dL (75-99)
[2018-02-11] MEDS: ACETAMINOPHEN TAB 325 MG TAB PO PRN ×2 (07:38→22:15)
[2018-02-11] MEDS: INSULIN ASPART 100 UNIT/ML 1 ML 10 ML VIAL SQ SCH ×4 (07:39→22:09)
[2018-02-11] MEDS: HYDROcodone/APAP 5-325MG 1 EACH TAB PO PRN (07:39)
[2018-02-11] MEDS: DOCUSATE 100 MG CAP PO SCH (07:40)
[2018-02-11] MEDS: PANTOPRAZOLE 40 MG/10 ML VIAL IV SCH (07:40)
[2018-02-11 09:13] LABS: Basophils % (A) 0 %; Eosinophils % (A) 0 %; HCT 36.7 % (34.0-46.0); Lymphocytes # (A) 0.8 k/uL (1.0-4.8); Lymphocytes % (A) 6 %; MCH 28.7 pg (25.0-35.0); MCHC 32.6 g/dL (31.0-37.0); MCV 88.1 fL (80.0-100.0); Mean Platelet Volume 7.5; Monocytes # (A) 0.5 k/uL (0-1.0); Monocytes % (A) 3 %; Neutrophils # (A) 12.6 k/uL (1.3-7.7); Neutrophils % (A) 90 %; Platelet Count 140 k/uL (150-450); RBC 4.17 m/uL (3.80-5.40)
--- NOTE | 2018-02-11 09:33 | P.PN ---
Subjective Progress Note Date: 02/11/18 Patient seen and examined at bedside. Overnight, patient did have additional fevers and some tachycardia. She states that she has some gas pain, however abdominal pain continues to improve. She did state that she had one large episode of diarrhea this morning and was unable to make it to the bathroom and did have an accident while in her hospital bed. She states that it was foul smelling. She also had 1 episode of diarrhea yesterday. She denies any nausea or vomiting and is tolerating a diet. She states that she has an appetite, however the hospital food is not to her taste. Objective - Vital Signs Vital signs: Vital Signs Temp 100.8 F H 02/11/18 09:15 Pulse 113 H 02/11/18 07:00 Resp 17 02/11/18 07:00 BP 123/65 02/11/18 07:00 Pulse Ox 94 L 02/11/18 07:00 Intake & Output 02/10/18 02/11/18 02/11/18 18:59 06:59 18:59 Intake Total 900 Balance 900 Intake: Intake, IV Titration 900 Amount Lactated Ringers 1,000 ml 850 @ 100 mls/hr IV .Q10H [facility] Rx#:[id number] Piperacillin-Tazobactam 3 50 .375 gm In Dextrose/Water 1 50ml.bag @ 12.5 mls/hr IVPB Q8H [facility] Rx#: [id number] Other: Voiding Method Toilet Toilet # Voids 1 1 # Bowel Movements 1 - Constitutional General appearance: Present: cooperative, no acute distress - Respiratory Details: No difficulty with respiration - Gastrointestinal Gastrointestinal Comment(s): Soft, no tenderness to palpation, no tenderness to percussion, no rebound, no guarding, mild distention - Psychiatric Psychiatric: Present: A&O x's 3 - Labs CBC & Chem 7: 02/11/18 08:24 02/10/18 06:54 Labs: Abnormal Lab Results - Last 24 Hours (Table) 02/09/18 02/10/18 02/10/18 Range/Units 10:57 11:00 17:24 WBC (3.8-10.6) k/uL Plt Count (150-450) k/uL Neutrophils # (1.3-7.7) k/uL Lymphocytes # (1.0-4.8) k/uL POC Glucose (mg/dL) 295 H 170 H (75-99) mg/dL Hemoglobin A1c 8.9 H (4.0-6.0) % 02/10/18 02/11/18 02/11/18 Range/Units 20:43 07:28 08:24 WBC 14.0 H (3.8-10.6) k/uL Plt Count 140 L (150-450) k/uL Neutrophils # 12.6 H (1.3-7.7) k/uL Lymphocytes # 0.8 L (1.0-4.8) k/uL POC Glucose (mg/dL) 175 H 139 H (75-99) mg/dL Hemoglobin A1c (4.0-6.0) % Microbiology - Last 24 Hours (Table) 02/09/18 10:57 Blood Culture - Preliminary Blood No Growth after 24 hours Assessment and Plan (1) Acute appendicitis Narrative/Plan: 67-year-old female postoperative day #2, status post laparoscopic appendectomy - The patient has had multiple febrile episodes over the past 24 hours and is having episodes of tachycardia. Her leukocytosis has remained stable around 14 although she has been on Zosyn. She is noted to have a pneumonia that was diagnosed prior to admission and has been on antibiotics as an outpatient. She also has had diarrhea episodes over the past 24 hours. I will obtain a stool culture and C. difficile toxin. She is showing no signs of peritonitis at this time. I will obtain a infectious disease consult for further evaluation. Chest x -ray was performed that did show resolving pneumonia. Blood cultures have been negative thus far. UA on arrival to the emergency department was negative for any obvious UTI. - Continue Zosyn until evaluation by infectious disease - Continue soft diet - DVT prophylaxis with SCDs and heparin subcu - Continue and encouraged incentive spirometry. - Medical recommendations appreciated Current Visit: Yes Status: Acute Code(s): K35.80 - UNSPECIFIED ACUTE APPENDICITIS SNOMED Code(s): 02889180
[2018-02-11 09:34] LABS: Albumin 2.4 g/dL (3.5-5.0); Calcium 7.6 mg/dL (8.4-10.2); Potassium 3.7 mmol/L (3.5-5.1); Total Bilirubin 0.9 mg/dL (0.2-1.3)
[2018-02-11 12:05] LABS: Glucose,Whole Blood 315 mg/dL (75-99)
--- NOTE | 2018-02-11 13:27 | P.PN ---
Subjective Progress Note Date: 02/11/18 This is 59-year-old female patient of Dr. Silva. Patient presented to the emergency room of right lower quadrant pain since states pain started the day prior and had been progressively increasing throughout the day and night. Patient does report that she did have some nausea and vomiting with the pain. Patient has known past medical history of asthma, diabetes mellitus, hyperlipidemia, pneumonia, skin disorder and thyroid disorder. CT of abdomen completed suggesting acute appendicitis mild to moderate surrounding inflammatory change. No free air is noted. Some reactive inflammatory changes to adjacent cecum and terminal ileum may be present. Patient underwent a laparoscopic appendectomy with Dr. Caputo. Patient does state she was on her last day of antibiotics for pneumonia prior to coming to the hospital. Patient' s white blood cell elevated at 14.2. Patient also having temps of 100.3. Patient does complain that she still having a cough some sputum production. Chest x-ray has been ordered. UA completed showing +3 glucose but negative for urinary tract infection. Patient currently on Zosyn per surgical services. At this time patient does complain of some abdominal pain. Patient denies chest pain or shortness of breath. Patient denies any nausea vomiting or diarrhea. Patient denies any urinary burning or frequency. On 02/11/2018 patient is currently resting comfortably in bed. Patient is continuing to have elevated temperatures. Chest x-ray completed yesterday. Per surgical services Dr. Lucia has been consulted. At this time patient denies cough. Patient denies any upper respiratory symptoms. Patient denies nausea vomiting or diarrhea. Patient denies any urinary burning or frequency. Patient denies chest pain or shortness breath. Objective - Vital Signs Vital signs: Vital Signs Temp 100.8 F H 02/11/18 09:15 Pulse 113 H 02/11/18 07:00 Resp 17 02/11/18 07:00 BP 123/65 02/11/18 07:00 Pulse Ox 94 L 02/11/18 07:00 Intake & Output 02/10/18 02/11/18 02/11/18 18:59 06:59 18:59 Intake Total 900 Balance 900 Intake: Intake, IV Titration 900 Amount Lactated Ringers 1,000 ml 850 @ 100 mls/hr IV .Q10H [facility] Rx#:[id number] Piperacillin-Tazobactam 3 50 .375 gm In Dextrose/Water 1 50ml.bag @ 12.5 mls/hr IVPB Q8H [facility] Rx#: [id number] Other: Voiding Method Toilet Toilet # Voids 1 1 # Bowel Movements 1 - Exam Head normocephalic Neck supple Lungs diminished breath sounds bilaterally Heart regular rate and rhythm S1-S2, no rub or gallop Abdomen nondistended. 3 surgical Sites clean dry and intact. Extremities no edema Neuro alert and orientated to 3 - Labs CBC & Chem 7: 02/11/18 08:24 02/11/18 08:24 Labs: Abnormal Lab Results - Last 24 Hours (Table) 02/10/18 02/10/18 02/11/18 Range/Units 17:24 20:43 07:28 WBC (3.8-10.6) k/uL Plt Count (150-450) k/uL Neutrophils # (1.3-7.7) k/uL Lymphocytes # (1.0-4.8) k/uL Sodium (137-145) mmol/L Glucose (74-99) mg/dL POC Glucose (mg/dL) 170 H 175 H 139 H (75-99) mg/dL Calcium (8.4-10.2) mg/dL Total Protein (6.3-8.2) g/dL Albumin (3.5-5.0) g/dL 02/11/18 02/11/18 02/11/18 Range/Units 08:24 08:24 12:03 WBC 14.0 H (3.8-10.6) k/uL Plt Count 140 L (150-450) k/uL Neutrophils # 12.6 H (1.3-7.7) k/uL Lymphocytes # 0.8 L (1.0-4.8) k/uL Sodium 134 L (137-145) mmol/L Glucose 154 H (74-99) mg/dL POC Glucose (mg/dL) 315 H (75-99) mg/dL Calcium 7.6 L (8.4-10.2) mg/dL Total Protein 5.0 L (6.3-8.2) g/dL Albumin 2.4 L (3.5-5.0) g/dL Microbiology - Last 24 Hours (Table) 02/09/18 10:57 Blood Culture - Preliminary Blood No Growth after 48 hours Assessment and Plan Assessment: 1. Acute appendicitis. Status post laparoscopic appendectomy with Dr. Caputo. Patient currently on low fiber diet 2. History of recent pneumonia. Patient received outpatient treatment prior to hospitalization. Patient does complain of cough with some sputum production. Chest x-ray completed showing resolving bibasilar bronchopneumonia. Which is asked 6 week follow-up PA and lateral chest to prove resolution. 3. Leukocytosis and febrile. WBC 14.2. Temp 101.3. Patient currently on Zosyn. UA negative for infection. Blood cultures have been ordered. Infectious disease consulted per surgical team. Stool culture and C. diff ordered per surgical team 4. History of hypothyroidism continue Synthroid 5. History of diabetes mellitus. Patient takes glipizide at home. Currently on hold. sliding scale has been ordered 6. Hyperlipidemia continue Lipitor 7. History of asthma. No exacerbation at this time DVT prophylaxis heparin. GI prophylaxis Protonix Acute for this consultation we will continue to follow patient closely throughout the day
[2018-02-11 17:11] LABS: Glucose,Whole Blood 198 mg/dL (75-99)
[2018-02-11] MEDS: VANCOMYCIN ORAL SOLUTION 250 MG/5 ML BOTTLE PO SCH (17:35)
[2018-02-11] MEDS: CHERRY FLAVOR 60 ML BOTTLE PO SCH (17:35)
[2018-02-11 21:20] LABS: Glucose,Whole Blood 188 mg/dL (75-99)
--- NOTE | 2018-02-11 22:00 | CONS ---
CONSULTATION DATE OF SERVICE: 02/11/2018 REASON FOR CONSULTATION: Fever. HISTORY OF PRESENT ILLNESS: The patient is a 67-year-old female who presented to the [facility] ER the morning of 02/09/2018 with the chief complaint of abdominal pain. The patient's pain started that morning. It initially was mostly generalized but then concentrated mostly into the right lower quadrant area. Pain was described to be squeezing and colicky in nature, almost 10/10 in severity. Patient denies significant nausea, vomiting or any diarrhea. With these symptoms, the patient was evaluated by the ER physician on arrival in the ER. The patient was afebrile initially but subsequently did spike a fever to 100.6. The patient had a CT of abdomen and pelvis completed which was suspicious for acute appendicitis. The patient was taken to the OR on the afternoon of 02/09/2018 and is status post laparoscopic appendectomy, with the biopsy confirming suppurative appendicitis involving full thickness of the organ. Patient subsequently started having a persistent fever with a fever of 101.3 on 02/10/2018 and 101.3 this morning. The patient did have mild blood cultures done which have been negative so far. She also had a UA on 02/09/2018 that was negative. Chest x-ray completed this morning shows findings consistent with resolving bibasilar bronchopneumonia. Infectious Disease was consulted for further recommendations regarding antibiotic therapy. Patient did mention that she has been just finishing antibiotic for pneumonia in the outpatient setting and has received about 2 weeks of antibiotic. When asked specifically for the name, she states she was taking Augmentin. The patient also has developed explosive diarrhea this morning, loose stools, but no bloody mucus in it. REVIEW OF SYSTEMS: CONSTITUTIONAL: Positive for weakness along with a fever. EYES: No complaint. ENT: No complaint. RESPIRATORY: As per HPI. CARDIOVASCULAR: No complaint. GENITOURINARY: No complaint. GASTROINTESTINAL: As per HPI. MUSCULOSKELETAL: No complaint. INTEGUMENTARY: No complaint. PSYCHOLOGICAL: No complaint. ENDOCRINE: No complaint. NEUROLOGICAL: No complaint. PAST MEDICAL HISTORY: 1. Diabetes mellitus. 2. Hyperlipidemia. 3. Pneumonia. 4. Hypothyroidism. PAST SURGICAL HISTORY: 1. . 2. EGD. 3. Colonoscopy. 4. LASIK surgery, bilateral eyes. SOCIAL HISTORY: Remote history of smoking. No drinking or drug use. FAMILY HISTORY: Mother of non-Hodgkin lymphoma at age 68. Father with a history of pituitary gland tumor and pulmonary fibrosis. ALLERGIES: 1. PNEUMOCOCCAL VACCINE. 2. ASPIRIN. 3. CODEINE. CURRENT MEDICATIONS: 1. Tylenol. 2. [place]. 3. Lipitor. 4. Heparin. 5. Dilaudid. 6. NovoLog. 7. Lactated Ringer's. 8. Synthroid. 9. Narcan. 10.Zofran. 11.Protonix. 12.Zosyn. PHYSICAL EXAMINATION: Blood pressure 111/66 with pulse of 81, temperature 98.7, T-max 101.3. She is 94% on room air. General description is an elderly female up in the bed in no distress. No tachypnea or accessory muscle of respiration use. HEENT examination shows slight pallor. No scleral icterus. Oral mucosa membrane is dry. No pharyngeal erythema or thrush. NECK: Trachea is central. No thyromegaly. LUNGS: Unlabored breathing with decreased breath sounds in the base. No wheeze or crackle. HEART: S1, S2. Regular rate and rhythm. ABDOMEN: Soft. Mildly distended. No guarding or rigidity. No organomegaly. EXTREMITIES: No edema of feet. SKIN EXAMINATION: No rash or mass palpable. Neurologically patient is awake, alert, oriented x3. Mood and affect normal. LABS: Hemoglobin is 12 with a white count of 14. Admission white count was 15.1. BUN of 9, creatinine 0.90. Electrolytes have been normal. Liver enzymes are normal. UA is negative. Chest x-ray with resolving bronchopneumonia. DIAGNOSTIC IMPRESSION AND PLAN: Patient with a fever in a patient who has been admitted to hospital with acute abdominal pain, has been diagnosed with appendicitis, status post laparoscopic appendectomy with no evidence of any perforation, now with persistent fever in addition to significant diarrhea in a patient who has been exposed to antibiotic in the outpatient setting. Concern about possible C difficile colitis to be at the top of the list, as the patient's chest x-ray reported no new pneumonia and UA has been negative. No evidence of any cellulitis. PLAN: 1. We will obtain stool for C difficile. 2. Will empirically add vancomycin 250 p.o. q.6 hours. 3. To continue with a short course of IV Zosyn 3.375 grams q.6 to cover for the acute suppurative appendicitis. 4. We will follow her clinical condition as well as cultures to further adjust medication if needed. Thank you for this consultation. Will follow this patient along with you. CHAPITO / IJN: [id number] /
[2018-02-11] MEDS: ATORVASTATIN 40 MG TAB PO SCH (22:09)
[2018-02-12] MEDS: CHERRY FLAVOR 60 ML BOTTLE PO SCH ×3 (01:10→12:24)
[2018-02-12] MEDS: VANCOMYCIN ORAL SOLUTION 250 MG/5 ML BOTTLE PO SCH ×3 (01:10→12:24)
[2018-02-12] MEDS: HEPARIN SODIUM,PORCINE 5,000 UNIT/ML 1 ML VIAL SQ SCH ×4 (01:11→23:24)
[2018-02-12] MEDS: ACETAMINOPHEN TAB 325 MG TAB PO PRN (04:10)
[2018-02-12] MEDS: LACTATED RINGERS 1,000 ML IV SCH ×3 (05:49→18:11)
[2018-02-12] MEDS: PIPERACILLIN-TAZOBACTAM 3.375 GM in DEXTROSE/WATER 1 50ML.BAG IVPB SCH ×3 (05:49→20:10)
[2018-02-12] MEDS: LEVOTHYROXINE 100 MCG TAB PO SCH (06:44)
[2018-02-12 07:22] LABS: Glucose,Whole Blood 149 mg/dL (75-99)
[2018-02-12] MEDS: PANTOPRAZOLE 40 MG/10 ML VIAL IV SCH (08:13)
[2018-02-12] MEDS: INSULIN ASPART 100 UNIT/ML 1 ML 10 ML VIAL SQ SCH ×4 (08:13→20:58)
[2018-02-12 08:17] LABS: Basophils % (A) 0 %; Eosinophils # (A) 0.1 k/uL (0-0.7); Eosinophils % (A) 1 %; HGB 11.8 gm/dL (11.4-16.0); Lymphocytes # (A) 0.9 k/uL (1.0-4.8); Lymphocytes % (A) 11 %; MCH 29.1 pg (25.0-35.0); MCHC 32.8 g/dL (31.0-37.0); MCV 88.7 fL (80.0-100.0); Mean Platelet Volume 7.9; Monocytes # (A) 0.4 k/uL (0-1.0); Monocytes % (A) 4 %; Neutrophils # (A) 6.7 k/uL (1.3-7.7); Neutrophils % (A) 82 %; Platelet Count 156 k/uL (150-450); RBC 4.06 m/uL (3.80-5.40); RDW 12.9 % (11.5-15.5); WBC 8.3 k/uL (3.8-10.6)
[2018-02-12 08:33] LABS: ALT 29 U/L (9-52); AST 16 U/L (14-36); Albumin 2.4 g/dL (3.5-5.0); Alkaline Phosphatase 90 U/L (38-126); Anion Gap 5 mmol/L; Blood Urea Nitrogen 6 mg/dL (7-17); Carbon Dioxide 26 mmol/L (22-30); Chloride 108 mmol/L (98-107); Glucose 134 mg/dL (74-99); Potassium 3.6 mmol/L (3.5-5.1); Sodium 139 mmol/L (137-145); Total Bilirubin 0.7 mg/dL (0.2-1.3)
[2018-02-12 12:33] LABS: Glucose,Whole Blood 292 mg/dL (75-99)
[2018-02-12] MEDS: HYDROcodone/APAP 5-325MG 1 EACH TAB PO PRN (13:14)
--- NOTE | 2018-02-12 14:49 | P.PN ---
Subjective Progress Note Date: 02/12/18 Patient seen and examined at bedside. States she is feeling much better. Still having some small episodes of diarrhea. The patient states that she believes she was having a reaction to Lipitor which has caused major diarrhea and the past for her. She denies feeling febrile. She denies any nausea vomiting. She is tolerating a soft diet. She denies any significant abdominal pain. Objective - Vital Signs Vital signs: Vital Signs Temp 98.5 F 02/12/18 07:00 Pulse 61 02/12/18 07:00 Resp 18 02/12/18 07:00 BP 146/78 02/12/18 07:00 Pulse Ox 97 02/12/18 07:00 Intake & Output 02/11/18 02/12/18 02/12/18 18:59 06:59 18:59 Intake Total 200 600 400 Output Total 1 Balance 200 600 399 Intake: Oral 200 600 400 Output: Urine/Stool Mix 1 Other: Voiding Method Toilet Toilet # Voids 3 1 3 # Bowel Movements 3 2 - Constitutional General appearance: Present: cooperative, no acute distress - Respiratory Details: No difficulty with respiration - Gastrointestinal Gastrointestinal Comment(s): Soft, appropriate tenderness, nondistended, no rebound, no tenderness to percussion, incision sites are clean, dry and intact and healing well - Psychiatric Psychiatric: Present: A&O x's 3, appropriate affect - Labs CBC & Chem 7: 02/12/18 07:03 02/12/18 07:03 Labs: Abnormal Lab Results - Last 24 Hours (Table) 02/11/18 02/11/18 02/12/18 Range/Units 17:04 21:17 07:03 Lymphocytes # 0.9 L (1.0-4.8) k/uL Chloride (98-107) mmol/L BUN (7-17) mg/dL Glucose (74-99) mg/dL POC Glucose (mg/dL) 198 H 188 H (75-99) mg/dL Calcium (8.4-10.2) mg/dL Total Protein (6.3-8.2) g/dL Albumin (3.5-5.0) g/dL 02/12/18 02/12/18 02/12/18 Range/Units 07:03 07:16 12:30 Lymphocytes # (1.0-4.8) k/uL Chloride 108 H (98-107) mmol/L BUN 6 L (7-17) mg/dL Glucose 134 H (74-99) mg/dL POC Glucose (mg/dL) 149 H 292 H (75-99) mg/dL Calcium 8.0 L (8.4-10.2) mg/dL Total Protein 5.0 L (6.3-8.2) g/dL Albumin 2.4 L (3.5-5.0) g/dL Microbiology - Last 24 Hours (Table) 02/09/18 10:57 Blood Culture - Preliminary Blood No Growth after 72 hours 02/12/18 04:45 Stool Culture - Preliminary Stool 02/10/18 17:34 Blood Culture - Preliminary Blood No Growth after 24 hours 02/10/18 17:44 Blood Culture - Preliminary Blood No Growth after 24 hours Assessment and Plan (1) Acute appendicitis Narrative/Plan: 67-year-old female postoperative day #3, status post laparoscopic appendectomy - Awaiting stool cultures, patient was started on oral vancomycin by infectious disease - Additional antibiotics per infectious disease - Appears to be improving, anticipated discharge in 24 hours - Leukocytosis resolved - Continue soft diet - DVT prophylaxis with SCDs and heparin subcu - Continue and encouraged incentive spirometry. - Medical recommendations appreciated Current Visit: Yes Status: Acute Code(s): K35.80 - UNSPECIFIED ACUTE APPENDICITIS SNOMED Code(s): 58877017
--- NOTE | 2018-02-12 15:41 | P.PN ---
Subjective Progress Note Date: 02/12/18 This is 59-year-old female patient of Dr. Silva. Patient presented to the emergency room of right lower quadrant pain since states pain started the day prior and had been progressively increasing throughout the day and night. Patient does report that she did have some nausea and vomiting with the pain. Patient has known past medical history of asthma, diabetes mellitus, hyperlipidemia, pneumonia, skin disorder and thyroid disorder. CT of abdomen completed suggesting acute appendicitis mild to moderate surrounding inflammatory change. No free air is noted. Some reactive inflammatory changes to adjacent cecum and terminal ileum may be present. Patient underwent a laparoscopic appendectomy with Dr. Caputo. Patient does state she was on her last day of antibiotics for pneumonia prior to coming to the hospital. Patient' s white blood cell elevated at 14.2. Patient also having temps of 100.3. Patient does complain that she still having a cough some sputum production. Chest x-ray has been ordered. UA completed showing +3 glucose but negative for urinary tract infection. Patient currently on Zosyn per surgical services. At this time patient does complain of some abdominal pain. Patient denies chest pain or shortness of breath. Patient denies any nausea vomiting or diarrhea. Patient denies any urinary burning or frequency. On 02/11/2018 patient is currently resting comfortably in bed. Patient is continuing to have elevated temperatures. Chest x-ray completed yesterday. Per surgical services Dr. Lucia has been consulted. At this time patient denies cough. Patient denies any upper respiratory symptoms. Patient denies nausea vomiting or diarrhea. Patient denies any urinary burning or frequency. Patient denies chest pain or shortness breath. On 02/12/2018 patient is currently sitting in a chair alert and oriented. Patient states she's feeling much improved. Fevers have started to subside. Awaiting stool culture results. Patient denies chest pain or shortness breath. Per frequency. Patient denies nausea vomiting diarrhea Objective - Vital Signs Vital signs: Vital Signs Temp 99.0 F 02/12/18 14:53 Pulse 81 02/12/18 14:53 Resp 16 02/12/18 14:53 BP 117/68 02/12/18 14:53 Pulse Ox 95 02/12/18 14:53 Intake & Output 02/11/18 02/12/18 02/12/18 18:59 06:59 18:59 Intake Total 200 600 400 Output Total 1 Balance 200 600 399 Weight 70.307 kg Intake: Oral 200 600 400 Output: Urine/Stool Mix 1 Other: Voiding Method Toilet Toilet # Voids 3 1 3 # Bowel Movements 3 2 - Exam Head normocephalic Neck supple Lungs diminished breath sounds bilaterally Heart regular rate and rhythm S1-S2, no rub or gallop Abdomen nondistended. 3 surgical Sites clean dry and intact. Extremities no edema Neuro alert and orientated to 3 - Labs CBC & Chem 7: 02/12/18 07:03 02/12/18 07:03 Labs: Abnormal Lab Results - Last 24 Hours (Table) 02/11/18 02/11/18 02/12/18 Range/Units 17:04 21:17 07:03 Lymphocytes # 0.9 L (1.0-4.8) k/uL Chloride (98-107) mmol/L BUN (7-17) mg/dL Glucose (74-99) mg/dL POC Glucose (mg/dL) 198 H 188 H (75-99) mg/dL Calcium (8.4-10.2) mg/dL Total Protein (6.3-8.2) g/dL Albumin (3.5-5.0) g/dL 02/12/18 02/12/18 02/12/18 Range/Units 07:03 07:16 12:30 Lymphocytes # (1.0-4.8) k/uL Chloride 108 H (98-107) mmol/L BUN 6 L (7-17) mg/dL Glucose 134 H (74-99) mg/dL POC Glucose (mg/dL) 149 H 292 H (75-99) mg/dL Calcium 8.0 L (8.4-10.2) mg/dL Total Protein 5.0 L (6.3-8.2) g/dL Albumin 2.4 L (3.5-5.0) g/dL Microbiology - Last 24 Hours (Table) 02/09/18 10:57 Blood Culture - Preliminary Blood No Growth after 72 hours 02/12/18 04:45 Stool Culture - Preliminary Stool 02/10/18 17:34 Blood Culture - Preliminary Blood No Growth after 24 hours 02/10/18 17:44 Blood Culture - Preliminary Blood No Growth after 24 hours Assessment and Plan Assessment: 1. Acute appendicitis. Status post laparoscopic appendectomy with Dr. Caputo. Patient currently on low fiber diet 2. History of recent pneumonia. Patient received outpatient treatment prior to hospitalization. Patient does complain of cough with some sputum production. Chest x-ray completed showing resolving bibasilar bronchopneumonia. Recommend 6 week follow-up PA and lateral chest to prove resolution. 3. Leukocytosis and febrile. WBC 14.2. Temp 101.3. Patient currently on Zosyn. UA negative for infection. Blood cultures have been ordered. Infectious disease consulted per surgical team. Stool culture and C. diff ordered per surgical . Blood cultures currently. Awaiting stool sample results. Patient's temps have improved. Patient is still having low-grade temps 99.6. White blood cell 8.3. Patient currently on Zosyn and Flagyl per infectious disease. 4. History of hypothyroidism continue Synthroid 5. History of diabetes mellitus. Patient takes glipizide at home. Currently on hold. sliding scale has been ordered 6. Hyperlipidemia continue Lipitor. Lipitor has been DC'd due to patient stating she has had diarrhea from Lipitor. 7. History of asthma. No exacerbation at this time DVT prophylaxis heparin. GI prophylaxis Protonix Anticipate discharge in the next 24-48 hours Acute for this consultation we will continue to follow patient closely throughout the day
[2018-02-12] MEDS: metroNIDAZOLE 500 MG TAB PO SCH ×2 (16:00→20:59)
[2018-02-12 17:30] LABS: Glucose,Whole Blood 273 mg/dL (75-99)
[2018-02-12 20:40] LABS: Glucose,Whole Blood 223 mg/dL (75-99)
[2018-02-12 22:14] VITALS: RESP 18
--- NOTE | 2018-02-12 22:32 | PN ---
PROGRESS NOTE DATE OF SERVICE: 02/12/2018 REASON FOR FOLLOWUP: 1. Postoperative fever and appendicitis. 2. Diarrhea, resolved. INTERVAL HISTORY: The patient's overall fever pattern has improved. The patient's last temperature was 100.8 yesterday morning. The patient denies having any chest pain or shortness of breath or cough. Her abdominal pain has improved and the diarrhea has resolved, which apparently is being attributed to Lipitor. PHYSICAL EXAMINATION: Blood pressure 117/68 with a pulse of 81, temperature 99. She is 95% on room air. General description is an elderly female up in the bed in no distress. RESPIRATORY SYSTEM: Unlabored breathing. Some decreased breath sounds at the bases. No wheeze. HEART: S1, S2. Regular rate and rhythm. ABDOMEN: Soft. No tenderness. LABS: Hemoglobin 11.8, white count 8.0 with a BUN of 6, creatinine 0.74. Blood culture has been negative. Stool culture currently pending. DIAGNOSTIC IMPRESSION AND PLAN: Patient with postoperative fever. The patient did have underlying acute appendicitis, but no evidence of any perforation, with initial concern about possible Clostridium difficile. However, diarrhea discontinuation of the Lipitor. We will discontinue the vancomycin and keep the patient on Zosyn and Flagyl has been added. If the patient continues to improve, to finish therapy with oral Cipro and Flagyl for about a week with close outpatient followup. Continue with supportive care. DEONTEL / MOHAN: [id number] /
[2018-02-13] MEDS: ACETAMINOPHEN TAB 325 MG TAB PO PRN (00:41)
[2018-02-13] MEDS: LACTATED RINGERS 1,000 ML IV SCH ×2 (03:39→13:38)
[2018-02-13] MEDS: PIPERACILLIN-TAZOBACTAM 3.375 GM in DEXTROSE/WATER 1 50ML.BAG IVPB SCH ×2 (04:14→11:46)
[2018-02-13 06:11] VITALS: BP 163/96; PULSE 74; TEMP 98.7
[2018-02-13] MEDS: LEVOTHYROXINE 100 MCG TAB PO SCH (06:26)
[2018-02-13] MEDS ORDERED: PANTOPRAZOLE 40 MG TABLET PO SCH (07:30)
[2018-02-13 07:37] LABS: Glucose,Whole Blood 158 mg/dL (75-99)
--- NOTE | 2018-02-13 07:43 | P.DS ---
Providers Date of admission: 02/10/18 14:39 Attending physician: Hui Caputo DO Consults: 02/09/18 14:49 Consult Physician Routine Consulting Provider: Golden Rodriguez Consult Reason/Comments: med mgmt Do you want consulting provider notified?: Yes 02/11/18 08:53 Consult Physician Routine Consulting Provider: Domi Lucia Consult Reason/Comments: Fever, diarrhea post appendectomy Do you want consulting provider notified?: Yes Primary care physician: Luli Silva - Discharge Diagnosis(es) (1) Acute appendicitis Current Visit: Yes Status: Acute Hospital Course: 67-year-old female initially presented secondary to abdominal pain. On workup was found to have acute appendicitis. Secondary to this, left scopic appendectomy was performed. In the postoperative period, the patient did have febrile episodes that were noted. The patient also did have some tachycardia episodes. She was noted to also have diarrhea. Concern for infectious colitis was noted and infectious disease was involved in the case. Antibiotic recommendations were made. The patient's leukocytosis improved. The patient has been afebrile for over 24 hours and tachycardia has resolved. The patient states that she has been feeling better. She is tolerating diet. She has increased level of energy. At this point, she is stable for discharge. Procedures: Laparoscopic appendectomy Patient Condition at Discharge: Fair Plan - Discharge Summary Discharge Rx Participant: Yes New Discharge Prescriptions: New HYDROcodone/APAP 5-325MG [[place] 5-325] 1 each PO Q6HR PRN #12 tab PRN Reason: Pain Continue Loratadine 10 mg PO DAILY Atorvastatin [Lipitor] 40 mg PO HS Multivit-Min/Iron/Folic/Lutein [Centrum Silver Women Tablet] 1 tab PO DAILY Albuterol Inhaler [Ventolin Hfa Inhaler] 1 - 2 puff INHALATION RT-Q6H PRN PRN Reason: sob glipiZIDE XL [Glucotrol XL] 10 mg PO DAILY Levothyroxine Sodium [Synthroid] 100 mcg PO DAILY Amoxic-Pot Clav 500-125 mg [Augmentin 500-125 mg] 1 tab PO Q12HR Magnesium 200 mg PO DAILY Biotin 5 mg PO DAILY Discharge Medication List Albuterol Inhaler [Ventolin Hfa Inhaler] 1 - 2 puff INHALATION RT-Q6H PRN 10/05/ 17 [History] Atorvastatin [Lipitor] 40 mg PO HS 02/20/17 [History] Loratadine 10 mg PO DAILY 02/20/17 [History] Multivit-Min/Iron/Folic/Lutein [Centrum Silver Women Tablet] 1 tab PO DAILY 10/02 [History] Amoxic-Pot Clav 500-125 mg [Augmentin 500-125 mg] 1 tab PO Q12HR 02/09/18 [ History] Biotin 5 mg PO DAILY 02/09/18 [History] Levothyroxine Sodium [Synthroid] 100 mcg PO DAILY 02/09/18 [History] Magnesium 200 mg PO DAILY 02/09/18 [History] glipiZIDE XL [Glucotrol XL] 10 mg PO DAILY 02/09/18 [History] HYDROcodone/APAP 5-325MG [[place] 5-325] 1 each PO Q6HR PRN #12 tab 02/13/18 [Rx] Follow up Appointment(s)/Referral(s): Luli Silva MD [Primary Care Provider] - 1-2 days Hui Caputo DO [Doctor of Osteopathic Medicine] - 1 Week [facility] Visiting Nurse, [NON-STAFF] - 1-2 Days Patient Instructions/Handouts: Laparoscopic Appendectomy (DC) Activity/Diet/Wound Care/Special Instructions: Okay to shower, do not scrub on incisions with soap. Okay to wash with soap and patent dry. No lifting greater than 20 pounds for 2 weeks Low fiber, diabetic diet. Activity as tolerated. Discharge Disposition: HOME SELF-CARE
[2018-02-13] MEDS: metroNIDAZOLE 500 MG TAB PO SCH ×2 (08:09→15:42)
[2018-02-13] MEDS: HYDROcodone/APAP 5-325MG 1 EACH TAB PO PRN (08:09)
[2018-02-13] MEDS: INSULIN ASPART 100 UNIT/ML 1 ML 10 ML VIAL SQ SCH ×2 (08:10→12:16)
[2018-02-13] MEDS: HEPARIN SODIUM,PORCINE 5,000 UNIT/ML 1 ML VIAL SQ SCH (08:10)
[2018-02-13 08:40] LABS: Basophils % (A) 0 %; Eosinophils # (A) 0.1 k/uL (0-0.7); Eosinophils % (A) 2 %; HCT 38.7 % (34.0-46.0); HGB 12.8 gm/dL (11.4-16.0); Lymphocytes # (A) 0.9 k/uL (1.0-4.8); Lymphocytes % (A) 16 %; MCH 29.1 pg (25.0-35.0); MCHC 33.1 g/dL (31.0-37.0); MCV 87.8 fL (80.0-100.0); Mean Platelet Volume 7.3; Monocytes # (A) 0.3 k/uL (0-1.0); Monocytes % (A) 4 %; Neutrophils # (A) 4.6 k/uL (1.3-7.7); Neutrophils % (A) 76 %; Platelet Count 181 k/uL (150-450); RDW 12.9 % (11.5-15.5)
[2018-02-13 08:49] LABS: ALT 55 U/L (9-52); AST 50 U/L (14-36); Albumin 2.9 g/dL (3.5-5.0); Alkaline Phosphatase 126 U/L (38-126); Anion Gap 7 mmol/L; Blood Urea Nitrogen 6 mg/dL (7-17); Calcium 8.5 mg/dL (8.4-10.2); Carbon Dioxide 27 mmol/L (22-30); Chloride 105 mmol/L (98-107); Glucose 184 mg/dL (74-99); Potassium 3.8 mmol/L (3.5-5.1); Sodium 139 mmol/L (137-145); Total Bilirubin 0.7 mg/dL (0.2-1.3); Total Protein 5.7 g/dL (6.3-8.2)
[2018-02-13 12:09] LABS: Glucose,Whole Blood 306 mg/dL (75-99)
--- NOTE | 2018-02-13 13:47 | P.PN ---
Subjective Progress Note Date: 02/13/18 This is 59-year-old female patient of Dr. Silva. Patient presented to the emergency room of right lower quadrant pain since states pain started the day prior and had been progressively increasing throughout the day and night. Patient does report that she did have some nausea and vomiting with the pain. Patient has known past medical history of asthma, diabetes mellitus, hyperlipidemia, pneumonia, skin disorder and thyroid disorder. CT of abdomen completed suggesting acute appendicitis mild to moderate surrounding inflammatory change. No free air is noted. Some reactive inflammatory changes to adjacent cecum and terminal ileum may be present. Patient underwent a laparoscopic appendectomy with Dr. Caputo. Patient does state she was on her last day of antibiotics for pneumonia prior to coming to the hospital. Patient' s white blood cell elevated at 14.2. Patient also having temps of 100.3. Patient does complain that she still having a cough some sputum production. Chest x-ray has been ordered. UA completed showing +3 glucose but negative for urinary tract infection. Patient currently on Zosyn per surgical services. At this time patient does complain of some abdominal pain. Patient denies chest pain or shortness of breath. Patient denies any nausea vomiting or diarrhea. Patient denies any urinary burning or frequency. On 02/11/2018 patient is currently resting comfortably in bed. Patient is continuing to have elevated temperatures. Chest x-ray completed yesterday. Per surgical services Dr. Lucia has been consulted. At this time patient denies cough. Patient denies any upper respiratory symptoms. Patient denies nausea vomiting or diarrhea. Patient denies any urinary burning or frequency. Patient denies chest pain or shortness breath. On 02/12/2018 patient is currently sitting in a chair alert and oriented. Patient states she's feeling much improved. Fevers have started to subside. Awaiting stool culture results. Patient denies chest pain or shortness breath. Per frequency. Patient denies nausea vomiting diarrhea On 02/13/2018 patient is currently sitting in chair alert and oriented. Patient states she feels much improved. Patient will be discharged home per surgical services. Antibiotics per infectious disease. Patient denies chest pain or shortness of breath. Patient denies nausea vomiting or diarrhea. Patient denies any urinary burning or frequency. Objective - Vital Signs Vital signs: Vital Signs Temp 98.7 F 02/13/18 06:10 Pulse 74 02/13/18 06:10 Resp 18 02/13/18 06:10 BP 163/96 02/13/18 06:10 Pulse Ox 95 02/13/18 06:10 Intake & Output 02/12/18 02/13/18 02/13/18 18:59 06:59 18:59 Intake Total 400 750 Output Total 1 Balance 399 750 Weight 70.307 kg Intake: Oral 400 750 Output: Urine/Stool Mix 1 Other: Voiding Method Toilet # Voids 3 1 2 # Bowel Movements 2 - Exam Head normocephalic Neck supple Lungs diminished breath sounds bilaterally Heart regular rate and rhythm S1-S2, no rub or gallop Abdomen nondistended. 3 surgical Sites clean dry and intact. Extremities no edema Neuro alert and orientated to 3 - Labs CBC & Chem 7: 02/13/18 08:19 02/13/18 08:19 Labs: Abnormal Lab Results - Last 24 Hours (Table) 02/12/18 02/12/18 02/13/18 Range/Units 17:15 20:37 07:11 Lymphocytes # (1.0-4.8) k/uL BUN (7-17) mg/dL Glucose (74-99) mg/dL POC Glucose (mg/dL) 273 H 223 H 158 H (75-99) mg/dL AST (14-36) U/L ALT (9-52) U/L Total Protein (6.3-8.2) g/dL Albumin (3.5-5.0) g/dL 02/13/18 02/13/18 02/13/18 Range/Units 08:19 08:19 12:07 Lymphocytes # 0.9 L (1.0-4.8) k/uL BUN 6 L (7-17) mg/dL Glucose 184 H (74-99) mg/dL POC Glucose (mg/dL) 306 H (75-99) mg/dL AST 50 H (14-36) U/L ALT 55 H (9-52) U/L Total Protein 5.7 L (6.3-8.2) g/dL Albumin 2.9 L (3.5-5.0) g/dL Microbiology - Last 24 Hours (Table) 02/09/18 10:57 Blood Culture - Preliminary Blood No Growth after 96 hours 02/10/18 17:34 Blood Culture - Preliminary Blood No Growth after 48 hours 02/10/18 17:44 Blood Culture - Preliminary Blood No Growth after 48 hours 02/12/18 04:45 Stool Culture - Preliminary Stool Assessment and Plan Assessment: 1. Acute appendicitis. Status post laparoscopic appendectomy with Dr. Caputo. Patient currently on low fiber diet. Patient has been discharged from renal standpoint. Patient to follow-up outpatient with surgical services 2. History of recent pneumonia. Patient received outpatient treatment prior to hospitalization. Patient does complain of cough with some sputum production. Chest x-ray completed showing resolving bibasilar bronchopneumonia. Recommend 6 week follow-up PA and lateral chest to prove resolution. 3. Leukocytosis and febrile. WBC 14.2. Temp 101.3. Patient currently on Zosyn. UA negative for infection. Blood cultures have been ordered. Infectious disease consulted per surgical team. Stool culture and C. diff ordered per surgical . Blood cultures currently. Awaiting stool sample results. Patient's temps have improved. Patient is still having low-grade temps 99.6. White blood cell 8.3. Patient has been cleared for discharge from infectious disease standpoint. Patient will be going home on Flagyl and Cipro. Patient to follow up with Dr. Lucia outpatient 4. History of hypothyroidism continue Synthroid 5. History of diabetes mellitus. Patient takes glipizide at home. Currently on hold. sliding scale has been ordered. Resume home medications upon discharge 6. Hyperlipidemia continue Lipitor. Lipitor has been DC'd due to patient stating she has had diarrhea from Lipitor. 7. History of asthma. No exacerbation at this time 8. Elevated liver enzyme. AST 50 and ALT 55. Lipitor has been DC'd. patient to follow up with PCP. CMP ordered for 3 days DVT prophylaxis heparin. GI prophylaxis Protonix Acute for this consultation we will continue to follow patient closely throughout the day
--- NOTE | 2018-02-13 17:00 | PN ---
PROGRESS NOTE DATE OF SERVICE: 02/13/2018. REASON FOR FOLLOW UP: Postop fever and acute appendicitis. INTERVAL HISTORY: The patient was seen on rounds early this afternoon. The patient has been afebrile. The patient complaining of multiple loose stools since morning with blood and mucus in it. Her abdominal pain has improved. Denies significant chest pain or shortness of breath or cough. EXAMINATION: Blood pressure 163/96 with a pulse of 74, temperature 98.7. She is 95% on room air. General description is an elderly female up in the room in no distress. RESPIRATORY SYSTEM: Unlabored breathing. Clear to auscultation anteriorly. HEART: S1, S2. Regular rate and rhythm. ABDOMEN: Soft, no tenderness. LABS: Hemoglobin 12.8, white count 6.0, BUN of 6, creatinine 0.78. Stool for C difficile was checked which came back negative. DIAGNOSTIC IMPRESSION AND PLAN: Patient with postop fever in a patient who did have acute appendicitis, status post laparoscopic appendectomy. Her fever has resolved. She was having a lot of diarrhea. However, stool for C diff was checked and was negative. The patient not running any further fever and white count normal. Antibiotic can be transitioned to Cipro 500 mg twice a day along with Flagyl 500 mg 3 times a day for 7 days with close outpatient followup. Prescription was sent to the pharmacy. CHAPITO / ALPHONSON: [id number] /
== END 2018-02-13 15:46 | disposition home or self-care (01) | DRG 341 ==
LOC: EC 10:18 → 6PED 12:28 → OBSVTOIN 02-10 14:39 → 4MS4W 02-10 16:24
PROVIDERS: ADMIT Surgery; ATTEND Surgery
PROC: 0DTJ4ZZ Resection of Appendix, Percutaneous Endoscopic Approach (ICD-10-PCS; principal; 2018-02-10)
DX: K35.80 Unspecified acute appendicitis (principal); J18.0 Bronchopneumonia, unspecified organism; K52.1 Toxic gastroenteritis and colitis; E03.9 Hypothyroidism, unspecified; E11.9 Type 2 diabetes mellitus without complications; E78.00 Pure hypercholesterolemia, unspecified; E78.5 Hyperlipidemia, unspecified; J45.909 Unspecified asthma, uncomplicated; Z80.7 Family history of other malignant neoplasms of lymphoid, hematopoietic and related tissues; Z87.01 Personal history of pneumonia (recurrent); Z87.891 Personal history of nicotine dependence; Z79.84 Long term (current) use of oral hypoglycemic drugs; Z79.890 Hormone replacement therapy; Z79.899 Other long term (current) drug therapy; Z88.6 Allergy status to analgesic agent; Z88.5 Allergy status to narcotic agent; Z88.7 Allergy status to serum and vaccine; T46.6X5A Adverse effect of antihyperlipidemic and antiarteriosclerotic drugs, initial encounter
CPT/HCPCS: 36415; 71046; 74177; 80048; 80053; 81003; 82150; 83036; 83605; 83690; 85025; 87040; 87045; 87046; 87324; 88304; 96361; 96365; 96366; 96372; 96375; 99285

== ENCOUNTER → 2018-08-04 | Outpatient (CLI) | payer MEDICARE | END | disposition home or self-care (01) | LOC: LABWHC1 12:50 | PROVIDERS: ATTEND Nurse Practitioner | DX: E03.9 Hypothyroidism, unspecified (principal) | CPT/HCPCS: 36415; 84443 ==